=== PATIENT | female | born 1945 | race Caucasian/White ===

== ENCOUNTER → 2017-02-19 | Outpatient (CLI) | payer MEDICARE, BC, OTHER ==
[~2017-02-19] MED LIST: BENTYL 20MG20 MG/TAB PO; CENTRUM SILVER1 CTB PO; FEMARA 2.5MG2.5 MG PO; FISH OIL1 POW; FOSAMAX PO; IRON METAL1 POW; IRON324 M1 PO; MULTI VITAMINS1 TAB PO; OMEGA 31000 MG PO; OSCAL 500 TAB500 MG PO; PROCARDIA XL 3030 MG PO; PROCARDIA XL30 MG PO; SUPER B COMPLEX1 TA2 PO; TOBRADEX 0.1%-2.5 ML OP; VITAMIN B COMPL1 T16 PO
== END ==
LOC: MC.RAD 07:40
DX: Z12.31 Encounter for screening mammogram for malignant neoplasm of breast (principal); Z98.890 Other specified postprocedural states

== ENCOUNTER → 2018-03-12 | Outpatient (CLI) | payer MEDICARE, BC, OTHER | LOC: MC.RAD 10:25 | DX: Z12.31 Encounter for screening mammogram for malignant neoplasm of breast (principal); N64.89 Other specified disorders of breast ==

== ENCOUNTER → 2018-03-15 | Outpatient (CLI) | payer MEDICARE, BC, OTHER | LOC: MC.RAD 08:00 | DX: N64.89 Other specified disorders of breast (principal) | CPT/HCPCS: G0279 ==

== ENCOUNTER → 2019-04-01 | Outpatient (CLI) | payer MEDICARE, BC, OTHER | LOC: MC.RAD 09:38 | DX: Z12.31 Encounter for screening mammogram for malignant neoplasm of breast (principal); Z98.890 Other specified postprocedural states ==

== ENCOUNTER → 2020-04-05 | Outpatient (CLI) | payer MEDICARE, BC, OTHER | LOC: MC.RAD 10:36 | DX: Z12.31 Encounter for screening mammogram for malignant neoplasm of breast (principal) ==

== ENCOUNTER → 2021-05-04 | Outpatient (CLI) | payer MEDICARE, BC, OTHER | LOC: MC.RAD 12:51 | DX: Z12.31 Encounter for screening mammogram for malignant neoplasm of breast (principal); Z98.82 Breast implant status ==